=== PATIENT | female | born 1995 | race Two or more races ===

== ENCOUNTER 2019-07-24 12:06 | Emergency (ER) | payer OTHER ==
[~2019-07-24] VITALS: Ht 162.6 cm; Wt 57.0 kg
--- NOTE | 2019-07-24 12:32 | NUR ---
THIS IS A 23 YO F W/ C/O VB "SPOTTING" SINCE THIS MORNING. PT REPORTS ABD CRAMPING THAT HAS RESOLVED. LMP 06/09/19. [id number]. PT IS RESTING ON GURNEY W/ CALL LIGHT IN REACH. AWAITING ED EVAL. VS STABLE. NADN. FAMILY AT BEDSIDE.
--- NOTE | 2019-07-24 13:05 | NUR ---
ORDERS RECEIVED FOR LAB AND US. AWAITING RESULTS.
[2019-07-24 13:16] LABS: BASOPHILS # (AUTO) 0.02 x10^3/uL (0-0.1); BASOPHILS % (AUTO) 0 % (0-1); EOSINOPHILS # (AUTO) 0.09 x10^3/uL (0-0.4); EOSINOPHILS % (AUTO) 2 % (1-7); LYMPHOCYTES % (AUTO) 26 % (22-44); MD NO; MEAN CORPUSCULAR HEMOGLOBIN 29.3 pg (27.0-34.8); MEAN CORPUSCULAR HGB CONC 33.2 g/dL (32.4-35.8); MEAN CORPUSCULAR VOLUME 88.3 fL (80-100); MEAN PLATELET VOLUME 7.9 fL (7.4-10.4); MONOCYTES # (AUTO) 0.26 x10^3/uL (0.2-0.8); MONOCYTES % (AUTO) 5 % (2-9); NEUTROPHILS # (AUTO) 3.64 x10^3/uL (1.8-6.8); NEUTROPHILS % (AUTO) 67 % (42-75); PLATELET COUNT 285 x10^3/uL (130-400); RED BLOOD COUNT 4.49 x10^6/uL (3.82-5.3)
--- NOTE | 2019-07-24 13:30 | NUR ---
PT TO US.
--- NOTE | 2019-07-24 13:54 | NUR ---
PT BACK FROM RAD. AWAITING RESULTS.
--- NOTE | 2019-07-24 14:02 | NUR ---
ALL TESTS RESULTED. PT IS UP FOR RECHECK AT THIS TIME.
[2019-07-24 14:25] VITALS: BP 99/56
--- NOTE | 2019-07-24 14:26 | NUR ---
MED STUDENT AT BEDSIDE W/ POC.
== END 2019-07-24 14:31 | disposition home or self-care (01) ==
LOC: ED 14:25
DX: O20.0 Threatened abortion (principal); Z3A.01 Less than 8 weeks gestation of pregnancy
CPT/HCPCS: 36415; 76830; 84702; 85025; 86901; 99284

== ENCOUNTER 2019-07-27 10:09 | Emergency (ER) | payer OTHER ==
[~2019-07-27] VITALS: Ht 162.6 cm; Wt 59.9 kg
[2019-07-27 10:13] VITALS: BP 113/69
[2019-07-27] MEDS ORDERED: PRENATAL VIT PO (10:34)
--- NOTE | 2019-07-27 10:34 | NUR ---
PT AMBULATORY TO ROOM FROM [facility]. SEEN HERE ON FRIDAY FOR THREATEND . RPTS PASSING MORE CLOTS OVER WEEKEND WITH INCREASED CRAMPING. CRAMPING HAS RESSOLEVED AND PT RPTS SHE IS CHANGING A OB PAD EVERY 3 HRS. CALL LIGHT W/I REACH, BLANKET PROVIDED. ER PROVIDER EVAL PENDING.
[2019-07-27 11:23] LABS: RAPID INFLUENZA B Negative (Negative)
[2019-07-27 11:24] LABS: RAPID INFLUENZA A POSITIVE (Negative)
--- NOTE | 2019-07-27 12:17 | NUR ---
Patient/Caregiver given discharge instructions and they have confirmed that they understand the instructions. Patient ambulatory with steady gait.
== END 2019-07-27 12:26 | disposition home or self-care (01) ==
LOC: ED 12:25
DX: O03.9 Complete or unspecified spontaneous abortion without complication (principal); J10.1 Influenza due to other identified influenza virus with other respiratory manifestations
CPT/HCPCS: 36415; 76801; 84702; 87400; 99284